=== PATIENT | male | born 1975 | race Caucasian/White ===

== ENCOUNTER 2019-01-05 07:53 | Emergency (ER) | payer BC ==
[~2019-01-05] VITALS: Ht 180.3 cm; Wt 81.6 kg
[2019-01-05 08:03] VITALS: BP_SYST 129
[2019-01-05] MEDS ORDERED: KETOROLAC TROMETHAMINE 30 MG VIAL IM ONE (09:15)
[2019-01-05] MEDS ORDERED: IBUPROFEN 800 MG TABLET PO ONE (09:30)
[2019-01-05 10:17] VITALS: BP_SYST 129
== END 2019-01-05 10:17 | disposition home or self-care (01) ==
LOC: SED 07:53
DX: S42.001K Fracture of unspecified part of right clavicle, subsequent encounter for fracture with nonunion (principal); W18.39XD Other fall on same level, subsequent encounter
CPT/HCPCS: 73000-TC; 99283; J1885